=== PATIENT | female | born 2000 | race Caucasian/White ===

== ENCOUNTER 2022-09-25 08:15 | Outpatient (RCR) | payer BC, SELFPAY ==
[2022-09-24 10:47] VITALS: BP 100/78; PULSE 96; TEMP 37.1
[2022-09-24 10:50] VITALS: BMI 37.8
--- NOTE | 2022-09-24 11:34 | PC.ADMIT ---
Patient is a trans-gendered male who goes by the name of Hubert. He was referred to [facility] by [facility] where he was admitted on the behavioral health unit for the first time d/t increased depression with suicidal thoughts to jump off a bridge. Patient reportedly cut his foot with a razor superficially. Pt reports history of AH, VH, dissociative d/o and delusional thoughts. Patient has a significant history of trauma. See Integrative Assessment for more information. Patient stated he is taking a leave of absence from work to work on his mental health. 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 Patient is alert and oriented x4. Calm and cooperative. Presented with depressed mood and anxious affect. Denied SI or thoughts to harm himself. Gave patient a copy of his safety plan if needed. Patient denied any current substance use. History of using marijuana gummies daily. Patient reports he has a recent dx of autism. Medications reconciled with patient, patient's medication list he brought in and d/c paperwork from [facility]. He stated he is taking his medications as prescribed.
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
--- NOTE | 2022-09-27 12:13 | HO.PHP ---
On Saturday,09/25/2022,Pt reportedly left group treatment due to being triggered by the discussion within the group. Pt was upset crying and asked to meet with a clinician,this administrative underwriter was available to meet. This administrative underwriter met with the patient along with a [facility] underwriting internship. Pt was upset stating that he no longer wanted to engage in group therapy due to being triggered,he stated that group treatment is not for me Pt asked to be discharged. Pt was asked if he wanted to have an evaluation with the Care team in the [facility] ED,he declined. Pt called his mother,who came to pick him up. Pt does not have a psychiatric prescriber currently,he is being prescribed psychotropic medication through his Primary Care Doctor ( PCP)
== END 2022-09-25 23:59 | disposition home or self-care (01) ==
LOC: HO.PHPA 08:15
PROVIDERS: Visit Provider Psychiatry & Neurology Psychiatry
DX: F33.3 Major depressive disorder, recurrent, severe with psychotic symptoms (principal); F43.10 Post-traumatic stress disorder, unspecified
CPT/HCPCS: 90791; 90853